=== PATIENT | female | born 1930 | race Caucasian/White ===

== ENCOUNTER 2016-04-11 14:07 | Emergency (ER) | payer OTHER ==
[2016-04-11 15:07] LABS: MANUAL DIFF NEEDED? NO
[2016-04-11 15:16] LABS: BASO% 0.1 % (0.0-0.8); EOS# 0.02 X1000 (0.0-0.7); EOS% 0.2 % (0.0-10.0); HEMATOCRIT 41.2 % (37.0-47.0); HEMOGLOBIN 14.2 g/dL (12.0-16.0); IMM GRAN# 0.04 X1000 (0.0-0.04); IMM GRAN% 0.4 % (0.0-0.5); LYMPH% 10.1 % (20.5-51.1); MCH 28.2 PG (27-31); MCHC 34.5 g/dL (33-37); MCV 81.9 FL (81-99); MONO# 1.66 X1000 (0.11-0.59); MONO% 18.6 % (1.7-9.3); MPV 11.4 FL (7.4-10.4); NEUT% 70.6 % (42.2-75.2); PLT 281 X1000 (130-400); RBC 5.03 XMIL (4.2-5.4)
[2016-04-11 15:36] LABS: ALBUMIN 3.9 g/dL (3.5-5.0); CALCIUM 8.6 mg/dL (8.8-10.2); POTASSIUM 3.1 mmol/L (3.5-5.1); TOTAL BILIRUBIN 0.3 mg/dL (0.20-1.00); TOTAL PROTEIN 6.8 g/dL (6.3-8.3)
[2016-04-11 16:43] LABS: URINE SOURCE CLEAN CATCH
[2016-04-11 17:04] LABS: BILIRUBIN URINE NEGATIVE (NEGATIVE); BLOOD URINE 2+ (NEGATIVE); CLARITY SL. CLOUDY (CLEAR); COLOR YELLOW; GLUCOSE URINE NEGATIVE (NEGATIVE); LEUKOCYTES URINE 2+ (NEGATIVE); NITRITE URINE POSITIVE (NEGATIVE); PH URINE 6.5; PROTEIN URINE TRACE mg/dL (NEGATIVE); URINE EPITHELIAL CELLS <10 /HPF (<10); URINE RBC TNTC /HPF (<10); URINE WBC TNTC /HPF (<10); UROBILINOGEN URINE NORMAL
[2016-04-11 17:05] LABS: URINE CULTURE PL NEEDED? YES
[2016-04-11] MEDS ORDERED: NS 1,000 ML IV ONE (18:16)
--- NOTE | 2016-04-11 18:16 | PROVIDER DOCUMENTATION ---
HPI-General Adult - General Source: patient - History of Present Illness -Gen Adult Nature of Presenting Problems: 85 Y/O F presents to ED with N/V/D. Pt states that the symptoms began on Monday evening. States her daughter brought her to the ED due to the N/VV/D. Denies any back pain, abdominal pain, hematuria, dysuria. States V/D to many times to count. Location of Pain/Injury: reports: none Pain Radiation: reports: no radiation Quality of Pain: reports: none Severity: reports: moderate Onset/Duration: reports: 4 days ago Timing: reports: still present, improving Context/Activities at Onset: reports: none Modifying Factors: improves with: nothing Associated Symptoms: reports: diarrhea, nausea, vomiting Similar Symptoms Previously?: No Recently seen or treated by another doctor?: No <Pam Celeste - Last Filed: 04/11/16 20:12> <Can Willingham - Last Filed: 04/11/16 20:15> - General Chief Complaint: N/V/D Stated Complaint: V/D/WEAKNESS Time Seen by Provider: 04/11/16 18:09 Allergies/Adverse Reactions: Patient Allergies Allergy/AdvReac Type Severity Reaction Status Date / Time nitrofurantoin Allergy Mild RASH Verified 04/11/16 17:52 [From Macrobid] nitrofurantoin Allergy Mild RASH Verified 04/11/16 17:52 macrocrystalline * [From Macrobid] Sulfa (Sulfonamide Allergy Mild RASH Verified 04/11/16 17:52 Antibiotics) ceftriaxone sodium * AdvReac YEAST IN Verified 04/11/16 17:52 [From Rocephin] HER MOUTH Home Medications: Home Medication List Medication Instructions Recorded Confirmed Last Taken Type PRAVAstatin [Pravachol] 40 mg PO QHS 09/05/12 04/11/16 1 Day Ago History Pantoprazole [Protonix] 40 mg PO DAILY 09/05/12 04/11/16 1 Day Ago History Losartan [Cozaar] 100 mg .ROUTE DAILY 10/27/13 04/11/16 1 Day Ago History Lorazepam [Ativan] 0.5 mg PO BID 04/12/14 04/11/16 1 Day Ago History Aspirin [Aspirin EC] 81 mg PO DAILY 11/27/14 04/11/16 1 Day Ago History Diphenoxylate/Atropine [Lomotil] 1 each PO 4XDAY PRN PRN #14 tablet 04/11/16 Unknown Rx Furosemide [Lasix] 20 mg PO DAILY PRN 04/11/16 04/11/16 Unknown History Hydrocodone/Acetaminophen [[place] 10 mg PO DAILY PRN 04/11/16 04/11/16 Unknown History 10-325 Tablet] Ondansetron HCl [Zofran] 1 - 2 tab PO Q6H PRN PRN #15 tablet 04/11/16 Unknown Rx Potassium Chloride 10 meq PO DAILY PRN 04/11/16 04/11/16 Unknown History Review of Systems - Adult - REVIEW OF SYSTEMS - ADULT Constitutional: denies: chills, fever Eyes: reports: no symptoms reported Ears, Nose, Mouth & Throat: reports: no symptoms reported Cardiovascular: reports: no symptoms reported Respiratory: denies: cough, shortness of breath Gastrointestinal: reports: diarrhea, nausea, vomiting. denies: abdominal pain Genitourinary: denies: dysuria, discharge, flank pain, hematuria, urgency Musculoskeletal: denies: back pain Integumentary: reports: no symptoms reported Neurological: reports: no symptoms reported Psychiatric: reports: no symptoms reported Endocrine: reports: no symptoms reported Hematologic/Lymphatic: reports: no symptoms reported Allergic/Immunologic: reports: no symptoms reported All Other Systems: Reviewed and Negative <Pam Celeste - Last Filed: 04/11/16 20:12> Past History - Adult - PAST MEDICAL HISTORY-ADULT Review of Records: reports: Old Records Reviewed, Nursing Assessment Review, Medications Reviewed, Social history reviewed & non-contributory. Cardiovascular: reports: CAD, HTN Respiratory: reports: asthma Gastrointestinal: reports: GERD - PRIOR SURGERIES/PROCEDURES Surgical/Procedure History: reports: CABG, hysterectomy, orthopedic (extremity) - PRIOR HOSPITALIZATIONS Prior Hospitalizations: reports: none - IMMUNIZATION STATUS Childhood Immunizations: See Nurse Assessment Flu Vaccine: See Nurse Assessment - FAMILY HISTORY Family History: reviewed, not pertinent - SOCIAL HISTORY Living Situation: alone <Pam Celeste - Last Filed: 04/11/16 20:12> Physical Exam-General - PHYSICAL EXAM-ADULT Initial Vital Signs Reviewed: Yes - CONSTITUTIONAL General Appearance: appears well, alert, no apparent distress - EYES Eyes: fundi clear, no AV nicking, pale conjunctivae - HEAD, EARS, NOSE, MOUTH & THROAT HENMT: normocephalic/atraumatic. negative: moist mucous membranes - NECK Neck: non-tender, full range of motion, supple, normal inspection - RESPIRATORY Respiratory: chest non-tender, lungs clear, normal breath sounds - CARDIOVASCULAR Cardiovascular: normal peripheral pulses, regular rate, rhythm - GASTROINTESTINAL (ABDOMEN) Abdominal Exam: normal bowel sounds, non tender, soft - LYMPHATIC Lymphatic: no adenopathy - MUSCULOSKELETAL Back Exam: normal inspection, no CVA tenderness, no vertebral tenderness Extremity: normal range of motion, non-tender, normal gait, normal inspection - SKIN Integumentary: normal color, normal turgor, warm/dry - 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 - PSYCHIATRIC Psych/Mental Status: normal mood/affect, normal thought content, normal thought process, oriented x 3 <Pam Celeste - Last Filed: 04/11/16 20:12> Progress - PLAN OF CARE/RESULTS Progress/Plan/Lab Results: Laboratory Tests 04/11/16 04/11/16 04/11/16 14:51 14:51 15:30 WBC 8.93 RBC 5.03 Hgb 14.2 Hct 41.2 MCV 81.9 MCH 28.2 MCHC 34.5 RDW Std Deviation 13.1 Plt Count 281 MPV 11.4 H Immature Gran % (Auto) 0.4 Neut % (Auto) 70.6 Lymph % (Auto) 10.1 L [place] % (Auto) 18.6 H Eos % (Auto) 0.2 Baso % (Auto) 0.1 Immature Gran # (Auto) 0.04 Neut # (Auto) 6.30 Lymph # (Auto) 0.90 L [place] # (Auto) 1.66 H Eos # (Auto) 0.02 Baso # (Auto) 0.01 Sodium 127 L Potassium 3.1 L Chloride 94 L Carbon Dioxide 22 L Anion Gap 12 BUN 28 H Creatinine 0.9 Estimated GFR/1.73 m2 59 BUN/Creatinine Ratio 31 Glucose 113 H Calculated Osmolality 261 Calcium 8.6 L Total Bilirubin 0.30 AST 48 H ALT 43 H Alkaline Phosphatase 50 Total Protein 6.8 Albumin 3.9 Globulin 3.0 Albumin/Globulin Ratio 1.0 Lipase 23 Urine Source CLEAN CATCH Urine Color YELLOW Urine Clarity SL. CLOUDY A Urine pH 6.5 Ur Specific [place] 1.010 Urine Protein TRACE A Urine Ketones NEGATIVE Urine Blood 2+ A Urine Nitrite POSITIVE A Urine Bilirubin NEGATIVE Urine Urobilinogen NORMAL Urine Microscopic RBC TNTC A Urine WBC 2+ A Urine Microscopic WBC TNTC A Ur Epithelial Cells <10 Urine Bacteria 2+ Urine Glucose NEGATIVE 04/11/16 19:25 WBC RBC Hgb Hct MCV MCH MCHC RDW Std Deviation Plt Count MPV Immature Gran % (Auto) Neut % (Auto) Lymph % (Auto) [place] % (Auto) Eos % (Auto) Baso % (Auto) Immature Gran # (Auto) Neut # (Auto) Lymph # (Auto) [place] # (Auto) Eos # (Auto) Baso # (Auto) Sodium Potassium Chloride Carbon Dioxide Anion Gap BUN Creatinine Estimated GFR/1.73 m2 BUN/Creatinine Ratio Glucose Calculated Osmolality Calcium Total Bilirubin AST ALT Alkaline Phosphatase Total Protein Albumin Globulin Albumin/Globulin Ratio Lipase Urine Source CATH Urine Color YELLOW Urine Clarity CLEAR Urine pH 6.5 Ur Specific [place] 1.010 Urine Protein TRACE A Urine Ketones NEGATIVE Urine Blood 2+ A Urine Nitrite POSITIVE A Urine Bilirubin NEGATIVE Urine Urobilinogen NORMAL Urine Microscopic RBC Urine WBC TRACE A Urine Microscopic WBC Ur Epithelial Cells Urine Bacteria Urine Glucose NEGATIVE Orders Category Date Time Status Gray Cath Insertion ORDERED Care 04/11/16 19:31 Active Orthostatic Vital Signs NOW Care 04/11/16 18:16 Active Saline Loc NOW Care 04/11/16 14:09 Active CBC WITH DIFF [HEME] Stat Lab 04/11/16 14:51 Completed COMPREHENSIVE METABOLIC PANEL [CHEM] Stat Lab 04/11/16 14:51 Completed LIPASE [CHEM] Stat Lab 04/11/16 14:51 Completed UA [URINALYSIS PL] [URINALYSIS] Stat Lab 04/11/16 19:[address] W/POSS RFLX CULT [URINALYSIS] Stat Lab 04/11/16 15:30 Completed URINE CULTURE [RM] Routine Lab 04/11/16 17:05 Ordered URINE MICROSCOPIC [URINALYSIS] Stat Lab 04/11/16 19:25 Results 0.9% Sodium Chloride Inj [Ns] 1,000 ml Med 04/11/16 18:16 Discontinued IV 999 mls/hr Ondansetron [Zofran] Med 04/11/16 18:17 Discontinued 4 mg IV NOW ONE Potassium Chloride E.r. [Klor-Con] Med 04/11/16 18:17 Discontinued 20 meq PO NOW ONE Vital Signs - 24 hr 04/11/16 04/11/16 14:47 18:50 Pulse Rate 84 Pulse Rate [ 98 H Sitting] Pulse Rate [ 100 H Standing] Pulse Rate [ 89 Supine] Respiratory 18 Rate Blood Pressure 158/76 Blood Pressure 143/70 [Sitting] Blood Pressure 104/61 [Standing] Blood Pressure 138/67 [Supine] O2 Sat by Pulse 98 Oximetry <Pam Celeste - Last Filed: 04/11/16 20:12> Departure <Pam Celeste - Last Filed: 04/11/16 20:12> - Departure Time of Disposition Order: 20:13 Certified Medical Emergency: Emergent <Can Willingham - Last Filed: 04/11/16 20:15> - Departure DIAGNOSIS: Gastroenteritis Disposition: HOME 01 Condition: Good Additional Instructions: ED Follow Up Instructions: You have been treated by a care provider in the Emergency Department. These instructions are being provided to you so you can have an understanding of how to care for yourself upon discharge. Upon discharge from the Emergency Department, you are responsible for making arrangements for follow-up care by a physician of your choice. Take all prescribed medications as directed. Return to the Emergency Department immediately for any new or worsening symptoms. You may call the Physician Referral phone number at [phone] to obtain a list of Physicians who are taking new patients. Prescriptions: Diphenoxylate/Atropine [Lomotil] 1 each PO 4XDAY PRN PRN #14 tablet PRN Reason: Diarrhea Ondansetron HCl [Zofran] 1 - 2 tab PO Q6H PRN PRN #15 tablet PRN Reason: Vomiting Referrals: Urban Jones MD [Primary Care Provider] - Attestation - Scribe Verification/Attestation Scribe:: Pam Celeste Acting as Scribe for:: Can Willingham Scribe documention review:: This chart was documented by a scribe and accurately reflects the service the provider performed and the decisions made by the provider. <Pam Celeste - Last Filed: 04/11/16 20:12> Physician Attestation
[2016-04-11] MEDS ORDERED: ZOFRAN IV ONE (18:17)
[2016-04-11] MEDS ORDERED: KLOR-CON PO ONE ×2 (18:17→20:12)
[2016-04-11 19:50] LABS: URINE SOURCE CATH
[2016-04-11 20:00] LABS: BILIRUBIN URINE NEGATIVE (NEGATIVE); BLOOD URINE 2+ (NEGATIVE); CLARITY CLEAR (CLEAR); COLOR YELLOW; GLUCOSE URINE NEGATIVE (NEGATIVE); LEUKOCYTES URINE TRACE (NEGATIVE); NITRITE URINE POSITIVE (NEGATIVE); PH URINE 6.5; PROTEIN URINE TRACE mg/dL (NEGATIVE); URINE MICROSCOPIC NEEDED? YES; UROBILINOGEN URINE NORMAL
[2016-04-11] MEDS ORDERED: LOMOTIL PO ONE (20:12)
[2016-04-11 20:13] LABS: URINE RBC 20-40 /HPF (<10); URINE WBC 20-40 /HPF (<10)
[2016-04-11 20:16] VITALS: BP 133/63
== END 2016-04-11 20:32 | disposition home or self-care (01) ==
LOC: P.ED 14:07
DX: K52.9 Noninfective gastroenteritis and colitis, unspecified (principal); R11.2 Nausea with vomiting, unspecified; R19.7 Diarrhea, unspecified; I25.10 Atherosclerotic heart disease of native coronary artery without angina pectoris; I10 Essential (primary) hypertension; K21.9 Gastro-esophageal reflux disease without esophagitis; Z95.1 Presence of aortocoronary bypass graft; Z79.899 Other long term (current) drug therapy; Z79.82 Long term (current) use of aspirin
CPT/HCPCS: 36415; 80053; 81001; 83690; 85025; 87088; J2405; J7030